=== PATIENT | female | born 1995 | race Caucasian/White ===

== ENCOUNTER 2016-06-23 23:41 | Emergency (ER) | payer BC, OTHER ==
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
[2016-06-24 00:09] VITALS: BP 126/82; PULSE 63; RESP 18; TEMP 97.5; O2SAT 99
== END 2016-06-24 02:25 | disposition home or self-care (01) ==
DX: T76.21XA Adult sexual abuse, suspected, initial encounter (principal); X58.XXXA Exposure to other specified factors, initial encounter

== ENCOUNTER 2017-06-06 18:16 | Inpatient (IN) | payer BC ==
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
[2017-06-06 18:54] LABS: PLATELET COUNT 323 10^3/uL (150-400)
[2017-06-07] MEDS ORDERED: ACETAMINOPHEN 325 MG TAB PO PRN (01:00)
[2017-06-07] MEDS ORDERED: NICOTINE POLACRILEX 2 MG GUM B PRN (01:00)
[2017-06-07] MEDS ORDERED: OLANZapine DISINTEGR 5 MG TAB PO PRN (01:00)
[2017-06-07] MEDS ORDERED: VENLAFAXINE XR 37.5 MG CAP PO SCH (01:00)
[2017-06-07] MEDS ORDERED: MAGNESIUM HYDROXIDE 30 ML UDCUP PO PRN (01:00)
[2017-06-07] MEDS ORDERED: MAG HYDROX/AL HYDROX/SIMETH 30 ML UDCUP PO PRN (01:00)
[2017-06-07] MEDS ORDERED: LORazepam 0.5 MG TAB PO PRN (01:00)
[2017-06-07] MEDS ORDERED: hydrOXYzine HCL 25 MG TAB PO PRN (13:31)
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
--- NOTE | 2017-06-07 14:56 | BCON ---
[f rep st] BEHAVIORAL HEALTH CONSULTATION INTERNAL MEDICINE CONSULTATION DATE OF CONSULTATION: 06/07/2017 REFERRING PHYSICIAN: Chidi Muñoz MD REASON FOR REFERRAL: Medical clearance for inpatient behavioral health stay. HISTORY OF PRESENT ILLNESS: This patient came to the emergency department with suicidal ideation and depression. She was evaluated by the mental health team and admitted for further psychiatric care. Patient has no current medical complaints. PAST MEDICAL HISTORY: She denies any history of medical illnesses. PAST SURGICAL HISTORY: She has had wisdom teeth extraction. MEDICATIONS: She was taking venlafaxine. ALLERGIES: There is an allergy listed to tree nuts. SOCIAL HISTORY: She has recently broken up with a girlfriend. She is a nonsmoker. She has occasional alcohol. She lives with roommates. 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 FAMILY HISTORY: Noncontributory. REVIEW OF SYSTEMS: A 10-point review of systems was conducted and was negative. In particular, she denies weight gain or weight loss or any other symptoms referable to the thyroid, including no constipation or diarrhea, no fevers or chills, and no tremor. PHYSICAL EXAM: VITALS: Blood pressure is 117/77, heart rate is 70, respiratory rate is 14, oxygen saturation is 97% on room air. Temperature is 36.6 degrees centigrade. Her weight is 63.5 kg for a body mass index of 22.6. GENERAL: This is a well-nourished, well-developed woman, cooperative, and in mild distress. Appears her chronologic age. HEENT: Extraocular movements are intact. Pupils are equal, round, and reactive to light. Mucous membranes are moist. Dentition is in good condition. She has uncrowded airway, Mallampati class 2. NECK: Supple. HEART: There is a regular rate and rhythm with no murmurs, rubs, or gallops. LUNGS: Clear to auscultation bilaterally. ABDOMEN : Benign. EXTREMITIES: There is no cyanosis, clubbing, or edema. NEUROLOGIC : She is alert and oriented x3. Cranial nerves 2-12 are grossly intact. There is no focal weakness. Sensation is intact to light touch and gait is within normal limits. LABORATORY STUDIES: From the emergency department, CBC was overall within normal limits. She had a reduction of relative and absolute basophils of no clinical significance. Serum chemistry revealed normal renal function and electrolytes. Beta hCG was negative for . Toxicology screen in the serum was negative for ethyl alcohol and in the urine was negative for any substances of abuse. ASSESSMENT/RECOMMENDATIONS: 1. Mental health issues pending further evaluation and management per Psychiatry and the mental health team. 2. Normal exam. Psychiatry has ordered TSH, as well as ALT and AST. It is my anticipation that these will likely be normal, but they will serve as a baseline , depending on what psychiatric medications are used in the future. I see no medical contraindications to this patient's continued stay on the inpatient behavioral health unit or to any psychiatric medications or procedures. Thank you very much for including me in the care of this patient, and please do not hesitate to contact me or the hospitalist service should there be need for further medical evaluation. /[id number]/MODL MTDD
--- NOTE | 2017-06-07 16:09 | SOAPPROG ---
SOAP Progress Note Assessment/Plan: Assessment: Plan: Subjective: Patient signed CHRISTI for mother Sarah Ramirez [phone]. Mother reports she can monitor/supervise patient after discharge and assist her in getting psychotherapy and medication management. 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 Discussed plan for family meeting 06/08/17 on unit. Objective: Vital Signs Temp Pulse Resp BP Pulse Ox 36.6 C 70 14 117/77 97 06/07/17 01:28 06/07/17 01:28 06/07/17 01:28 06/07/17 01:28 06/07/17 01:28 ICD10 Worksheet Patient Problems: Problems Problem Status Onset Borderline personality disorder Acute Posttraumatic stress disorder Acute Severe major depression without psychotic features Acute Suicidal ideations Acute Suicide attempt by inadequate means Acute
[2017-06-07 19:03] VITALS: PULSE 69; RESP 16
[2017-06-07] MEDS ORDERED: VENLAFAXINE XR 75 MG CAP PO SCH (21:00)
[2017-06-08 06:45] VITALS: BP 121/71; TEMP 97.9; O2SAT 98
--- NOTE | 2017-06-08 08:12 | SOAPPROG ---
SOAP Progress Note Assessment/Plan: Assessment: MDD, recurrent severe without psychotic features PTSD Borderline PD Rule Out Adjustment Disorder Borderline LFT elevation Patient appears euthymic and reports multiple supports and coping skills, completed safety plan. Patient previously was stable on higher dose of Effexor, patient tapered down to 37.5mg over past year with PCP, unclear if reduction contributing to depression; patient had worsening mood and SI for 2 weeks after break up with girlfriend. 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 Reports feeling more hopeful. Reports wanting to live for mother, cat, and friends in her sorority. Reports coping skills to use if having SI: excercise, journal, play with cat, watch cat videos on You Tube, talk with friends, talk with mother , or contact [facility] counseling program. Agrees to continue medication and engage in outpatient therapy after discharge. Reports goal is to continue school and continue sport internship after staying with mother for several days. Reviewed handouts on Depression, PTSD, and Borderline PD and agrees with diagnosis. Objective: Vital Signs Temp Pulse Resp BP Pulse Ox 36.6 C 69 16 121/71 H 98 06/08/17 06:00 06/08/17 06:00 06/08/17 06:00 06/08/17 06:00 06/08/17 06:00 Alert WF, cooperative and calm. Speech soft, RRR. Mood 'good, more hopeful' Affect euthymic. Thoughts organized. Denies SI or HI or AH or paranoia. Insight fair. Judgment appropriate. AST 55, ALT 64, TSH 1.8 Staff report patient slept 7-8 hours, denies SI on unit, completed safety plan, attending groups and meals. - Time Spent With Patient Time Spent With Patient: 30 minutes individually this AM; will meet with patient and mother at 11AM for family meeting. - Pending Discharge Pending Discharge Within 24 Hours: Yes Pending Discharge Date: 06/09/17 Pending Discharge Time: 11:00 ICD10 Worksheet Patient Problems: Problems Problem Status Onset Borderline personality disorder Acute Posttraumatic stress disorder Acute Severe major depression without psychotic features Acute Suicidal ideations Acute Suicide attempt by inadequate means Acute
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
== END 2017-06-08 12:18 | disposition home or self-care (01) | DRG 885 ==
LOC: EEVIPCON 18:16 → BBEH 06-07 00:35
PROVIDERS: ADMIT Psychiatry & Neurology Psychiatry; ATTEND Psychiatry & Neurology Psychiatry
DX: F33.2 Major depressive disorder, recurrent severe without psychotic features (principal); F43.10 Post-traumatic stress disorder, unspecified; F60.3 Borderline personality disorder
CPT/HCPCS: 80305; G0480

== ENCOUNTER 2017-08-25 19:15 | Emergency (ER) | payer BC ==
--- NOTE | 2017-08-25 19:24 | EDPHY ---
H & P Stated Complaint: continued discomfort to bilateral ears. Time Seen by Provider: 08/25/17 19:23 HPI/ROS: HPI: This is a 22-year-old female who presents with Chief Complaint: continued discomfort to bilateral ears. Location: Bilateral ear Quality: Pain Duration: Several days Signs and Symptoms: no fever, no nausea, no vomiting, no diarrhea, no urinary symptoms, no chest pain, no shortness of breath, no wheezing, no cough, no sore throat, no neck stiffness, no joint pain, no swollen glands, + ear pain, no rash Timing: Constant Severity: Moderate Context: Patient was diagnosed with strep throat on Wednesday; currently taking azithromycin presents with complaints of continued bilateral frontal and maxillary sinus tenderness and pressure accompanied by bilateral ear discomfort. Reports that her sore throat no longer causes her pain. She reports that she no longer has white exudate on the back of her tonsils. Her glands have slowly decreased in size. She is able to eat and drink without difficulty. Currently menstruating. Patient reports that she was diagnosed with mono approximately 3 years ago and is requesting to be tested today. Modifying Factors: See above Comment: ROS: see HPI Constitutional: + fever, no chills, no weight loss Eyes: No blurred vision Respiratory: No shortness of breath, no cough Cardiovascular: No chest pain, no palpitations Gastrointestinal: No nausea, no vomiting, no diarrhea, no hematemesis, no blood in stool Genitourinary: No dysuria, no blood in urine Extremities: No myalgias, no edema Neurologic: No weakness, no numbness Skin: No rashes, no petechiae Hematologic: No bruising, no bleeding MEDICAL/SURGICAL/SOCIAL HISTORY: Medical history: Depression-takes Effexor. Surgical history: Denies Social history: Family history noncontributory. CONSTITUTIONAL: Ill-appearing but nontoxic young adult female, awake and alert , no obvious distress HEENT: Atraumatic and normocephalic, PERRL, EOMI. Tympanic membranes effusion. Oropharynx clear, tonsils 2+ but no erythema; no exudate; uvula midline and moist pink mucosa. Nares show mild mucosal edema. Reproducible bilateral frontal maxillary sinus pressure. Airway patent. No lymphadenopathy. No meningismus. Cardiovascular: Normal S1/S2, regular rate, regular rhythm, without murmur rub or gallop. PULMONARY/CHEST: Symmetrical and nontender. Clear to auscultation bilaterally. Good air movement. No accessory muscle usage. ABDOMEN: Soft, nondistended, nontender, no rebound, no guarding, no peritoneal signs, no masses or organomegaly. No CVAT. EXTREMITIES: 2/2 pulses, strength 5/5, no deformities, no clubbing, no cyanosis or edema. NEUROLOGICAL: no focal neuro deficits. GCS 15. SKIN: Warm and dry, no erythema. no rash. Good capillary refill. Source: Patient Exam Limitations: No limitations - Personal History LMP (Females 10-55): Now Current Tetanus/Diphtheria Vaccine: Yes Current Tetanus Diphtheria and Acellular Pertussis (TDAP): Yes - Medical/Surgical History Hx Asthma: No Hx Chronic Respiratory Disease: No Hx Diabetes: No Hx Cardiac Disease: No Hx Renal Disease: No Hx Cirrhosis: No Hx Alcoholism: Yes Hx HIV/AIDS: No Hx Splenectomy or Spleen Trauma: No Other PMH: DEPRESSION - Social History Smoking Status: Never smoked Constitutional: Initial Vital Signs Temperature (C) 37.5 C 08/25/17 19:17 Heart Rate 92 08/25/17 19:17 Respiratory Rate 18 08/25/17 19:17 Blood Pressure 128/76 H 08/25/17 19:17 O2 Sat (%) 96 08/25/17 19:17 O2 Delivery Mode Room Air Allergies/Adverse Reactions: tree nut [Nuts] Allergy (Verified 06/06/17 18:20) Home Medications: Medication Instructions Recorded Venlafaxine Xr [Effexor Xr 75MG 75 mg PO HS #30 cap 06/08/17 (*)] Medical Decision Making ED Course/Re-evaluation: Vance test ordered due to patient request; no signs of meningitis/airway compromise/tonsillar abscess/sinusitis/TM perforation/otitis media Symptoms are actually improving. Given Decadron 8 mg and Percocet with moderate relief of discomfort. Vance negative Advised to start taking antihistamine [id number], nasal steroid spray This patient was seen under the supervision of my secondary supervising physician. I evaluated care for this patient independently. Differential Diagnosis: Differential diagnosis includes but is not limited to upper respiratory infection, strep pharyngitis, sinusitis, otitis media. - Data Points Laboratory Results: 08/25/17 19:30 Monoscreen NEGATIVE (NEGATIVE) Medications Given: Discontinued Medications Dexamethasone (Decadron) 8 mg PO EDNOW ONE Stop: 08/25/17 19:32 Last Admin: 08/25/17 19:35 Dose: 8 mg Oxycodone/Acetaminophen (Percocet 5/325) 1 tab PO EDNOW ONE Stop: 08/25/17 19:32 Last Admin: 08/25/17 19:35 Dose: 1 tab Departure - Departure Disposition: Home, Routine, Self-Care Clinical Impression: Strep pharyngitis, Sinus congestion, Sinus headache Eustachian tube dysfunction Qualifiers: Laterality: bilateral Qualified Code(s): H69.83 - Other specified disorders of Eustachian tube, bilateral Condition: Good Instructions: Rhinosinusitis (ED) Additional Instructions: Your mono test was negative. Please take Claritin or Moriah or Zyrtec [id number] daily for allergic rhinitis. Take Flonase or Rhinocort daily; 1 spray each nostril. Complete Azithromycin antibiotic course. Take Tylenol 650 mg every 4 hr and/or ibuprofen 600 mg every 8 hr as needed for pain. Drink plenty of fluids to prevent dehydration and loosen mucous. Return to the ER immediately if you experience fevers/chills, shortness of breath, abdominal pain, inability to tolerate oral intake, or any other symptoms that concern you. Referrals: JANES MCKENZIE APPLICATIONS DEVELOPER [Primary Care Provider] - As per Instructions
[2017-08-25] MEDS ORDERED: OXYCODONE/APAP 5/325 TAB PO ONE (19:31)
[2017-08-25] MEDS ORDERED: DEXAMETHASONE 4 MG TAB PO ONE (19:31)
[2017-08-25 20:11] VITALS: BP 115/70
[2017-08-25] MEDS ORDERED: ACETAMINOPHEN 325 MG TAB PO ONE (20:11)
[2017-08-25] MEDS ORDERED: IBUPROFEN 200 MG TAB PO ONE (20:11)
[2017-08-25] MEDS ORDERED: OXYCODONE/APAP 5/325MG PREPACK#4 BTL TAKEHOME ONE ×2 (20:13)
== END 2017-08-25 20:34 | disposition home or self-care (01) ==
DX: H69.83 Other specified disorders of Eustachian tube, bilateral (principal); J02.0 Streptococcal pharyngitis; R09.81 Nasal congestion; R51 Headache

== ENCOUNTER 2018-07-29 13:52 | Emergency (ER) | payer BC ==
[2018-07-29 14:03] VITALS: BP 127/80
--- NOTE | 2018-07-29 14:36 | EDPHY ---
H & P Time Seen by Provider: 07/29/18 14:16 HPI/ROS: CHIEF COMPLAINT: "I just want to talk someone" HISTORY OF PRESENT ILLNESS: 23-year-old female history of depression, bulimia, drove herself to the ER. She initially had an appointment with her primary care provider today where she was looking forward to discussing her Effexor, depression as well as a single episode of suspected hematemesis yesterday. However she was informed that her appointment was canceled she therefore comes to the ER. She informs me that she self induces vomiting regularly after dinner . Last night she noticed a bloody appearance. No esophageal, chest or abdominal pain. This was a 1 time episode. She has since eaten and not self-induced vomiting. No complaints of pain or discomfort. She informs me she has had difficulty following up with psychiatrist, has not been able to see psychiatrist at [facility] or within the community and wanted to speak to her primary care provider about following up with Psychiatry and/or see a psychiatrist today. She Denies suicidal or homicidal ideation. Denies hallucination. Denies complaints of physical pain. Denies alcohol or drug use review PRIMARY CARE PROVIDER: Dr. Cherelle seaman REVIEW OF SYSTEMS: 10 systems reviewed and negative with the exception of the elements mentioned in the history of present illness PAST MEDICAL & SURGICAL HISTORY: depression . Bulimia SOCIAL HISTORY:Student PHYSICAL EXAM (Prior to examination, patient consented to physical exam, hands were washed and my usual and customary physical exam procedures followed) 1) GENERAL: Well-developed, well-nourished, alert and oriented. Tearful. 2) HEAD: Normocephalic, atraumatic 3) HEENT: Pupils equal, round, reactive to light bilaterally. Sclera anicteric. No gingival bleeding. No intraoral lesions. 4) NECK: Full range of motion, no meningeal signs. 5) LUNGS: Clear auscultation bilaterally, no wheezes, no rhonchi, no retractions. 6) HEART: Regular rate and rhythm, no murmur, no heave, no gallop. 7) ABDOMEN: No guarding, no rebound, no focal tenderness, negative McBurney's, negative Awad's, negative Rovsing's, negative peritoneal sign, 8) MUSCULOSKELETAL: Moving all extremities, no focal areas of tenderness, no obvious trauma. No peripheral edema or discoloration. 9) BACK: No CVA tenderness, no midline vertebral tenderness, no fluctuance, no step-off, no obvious trauma, no visual or palpable abnormality. 10) SKIN: No rash, no petechiae. 11) Psychiatric: Patient is oriented X 3, intermittently tearful DIFFERENTIAL DIAGNOSIS: In no particular order including but not limited to depression, suicidal ideation, homicidal ideation Smoking Status: Never smoked Constitutional: Initial Vital Signs Temperature (C) 36.6 C 07/29/18 14:01 Heart Rate 69 07/29/18 14:01 Respiratory Rate 18 07/29/18 14:01 Blood Pressure 127/80 H 07/29/18 14:01 O2 Sat (%) 95 07/29/18 14:01 O2 Delivery Mode Room Air Allergies/Adverse Reactions: tree nut [Nuts] Allergy (Verified 07/29/18 14:04) Unknown Home Medications: Medication Instructions Recorded Venlafaxine Xr [Effexor Xr 75MG 75 mg PO HS #30 cap 06/08/17 (*)] MDM/Departure - MDM ED Course/Re-evaluation: 2:32 p.m.: This patient has a history depression. I have asked her repeatedly whether she is experiencing suicidal homicidal ideations and she denies this. She would like to speak with mental health cancer researcher. She drove herself to the ER. I have discussed the [facility] walk-in clinic on [address] which she is agreeable to go to. She feels comfortable trouble driving herself there. Regarding her 1 episode of possible hematemesis yesterday, says now resolved, she is tolerating oral intake, denies melena or hematochezia, unusual bruising or gingival bleeding. I do not think that further diagnostic studies are indicated as this was more than likely transient episode secondary to self- induced emesis. Patient feels comfortable being discharged. All questions and concerns addressed by myself. Patient given my usual and customary discharge precautions and instructions regarding their clinical impression. Care of patient under supervision of secondary supervising physician Dr Segura - Depart Disposition: Home, Routine, Self-Care Clinical Impression: Hematemesis Qualifiers: Nausea presence: without nausea Qualified Code(s): K92.0 - Hematemesis Depression Qualifiers: Depression Type: unspecified Qualified Code(s): F32.9 - Major depressive disorder, single episode, unspecified Condition: Good Instructions: Depression (ED), Hematemesis (ED) Additional Instructions: Return to the ER immediately if you experience thoughts of hurting yourself, thoughts of hurting other people, thoughts of killing other people or killing yourself. Referrals: JANES MCKENZIE NP [Primary Care Provider] - 2-3 days, call for appt. [facility] [Clinic] - As per Instructions (Go directly to [facility] [place] [id number] walk-in clinic at: [facility] [facility], [place] [address])
--- NOTE | 2018-07-29 17:50 | ASMTCMCOM ---
CM Note CM Note Notes: Case Management asked to see patient regarding follow up mental health resources. Patient is tearful and communicative. She explains that she thought she hada an appointment scheduled today with her PCP, but was told the appointment was cancelled or "miss scheduled" when she arrived. Patient decided to come to the ED "to talk with someone". Patient denies SI or HI but feels depressed and wanted to talk to her PCP regarding her Effexor. Patient denies any current relationship with a counselor or social service liaison. She is insured under her mothers plan but tells me that it is "too expensive" to see a therapist. Her PCP, Dr. Ashley Jiang at [facility] ([place]) prescribes her Effexor. Patient denies taking any other medications and denies drug or excessive alcohol use. Patient is quiet and slow to engage, but ultimately opened up to me. She is receptive to going to [facility] crisis center to talk with a counselor and was willing to let me provide a taxi voucher to get her there directly. I have spoken with Godfrey at [facility]/Crisis Center to discuss patient's situation and he tells me she is welcome to come over and assures me that they will be able to get her back her to get her car. Unfortunately, patient and this CM waited for almost an hour for cab to arrive and while patient was waiting patiently, she and I agreed that she was relaxed enough to drive herself. Patient arrived to the crisis center and this CM confirmed her arrival with Cecy at [facility] This CM faxed a copy of patient's ED report as well as this CM note to Dr. Leanne Jiang at [facility] for follow up Date Signed: 07/29/2018 05:48 PM Electronically Signed By:Dee Perry RN
== END 2018-07-29 15:30 | disposition home or self-care (01) ==
DX: K92.0 Hematemesis (principal); F32.9 Major depressive disorder, single episode, unspecified; F50.2 Bulimia nervosa